=== PATIENT | male | born 1995 | race Caucasian/White ===

== ENCOUNTER 2017-12-16 17:56 | Emergency (ER) | payer OTHER ==
[2017-12-16 18:08] VITALS: BP 117/73; PULSE 56; RESP 18; TEMP 98.9; O2SAT 97
--- NOTE | 2017-12-16 18:18 | C.PDOC ---
History Of Present Illness 22yo male comes to ER for evaluation of laceration to the tip of his left 4th digit, sustained while at work. He denies any other injuries, weakness, numbness , tingling. No other complaints. Time Seen by Provider: 12/16/17 18:13 Chief Complaint (Nursing): Finger,Hand,&Wrist History Per: Patient History/Exam Limitations: no limitations Onset/Duration Of Symptoms: Hrs Current Symptoms Are (Timing): Still Present Quality: "Pain" Past Medical History Reviewed: Historical Data, Nursing Documentation, Vital Signs Vital Signs: Last Vital Signs Temp 98.9 F 12/16/17 18:05 Pulse 56 L 12/16/17 18:05 Resp 18 12/16/17 18:05 BP 117/73 12/16/17 18:05 Pulse Ox 97 12/16/17 18:17 - Medical History PMH: No Chronic Diseases Surgical History: No Surg Hx Family History: States: No Known Family Hx - Social History Hx Alcohol Use: Yes Hx Substance Use: No - Immunization History Hx Tetanus Toxoid Vaccination: Yes (05/2016) Hx Influenza Vaccination: No Hx Pneumococcal Vaccination: No Review Of Systems Except As Marked, All Systems Reviewed And Found Negative. Skin: Positive for: Other (lacertion to right 4th digit) Physical Exam - Physical Exam Appears: Non-toxic, No Acute Distress Skin: Warm, Dry, Other (1x1cm avulsion to tip of left 4th digit on the medial aspect.) Head: Atraumatic, Normacephalic Eye(s): bilateral: Normal Inspection Neck: Normal ROM, Supple Chest: Symmetrical Cardiovascular: Rhythm Regular Respiratory: Normal Breath Sounds Extremity: Normal ROM, No Deformity Neurological/Psych: Oriented x3 ED Course And Treatment O2 Sat by Pulse Oximetry: 97 (RA) Pulse Ox Interpretation: Normal Medical Decision Making Medical Decision Making: small avulsion lac of lateral tip of L 4th finger approx 1x1 cm no suture repair indicated cleaned and bandaged. Disposition Doctor Will See Patient In The: Office Counseled Patient/Family Regarding: Studies Performed, Diagnosis - Disposition Referrals: [facility] [Outside] [facility] [Outside] [facility] [Outside] Disposition: HOME/ ROUTINE Disposition Time: 18:17 Condition: GOOD Additional Instructions: llava con jabon y agua diario Bacitracin inguento diario mantiene cubierto y limpio kay el thelma. Instructions: Common Finger Injuries (DC) Forms: [facility] (Gabonese) Print Language: TRINIDADIAN - Clinical Impression Clinical Impression: Laceration of finger of left hand - Scribe Statement The provider has reviewed the documentation as recorded by the Scribe (Naila Lema) Provider Attestation: All medical record entries made by the Scribe were at my direction and personally dictated by me. I have reviewed the chart and agree that the record accurately reflects my personal performance of the history, physical exam, medical decision making, and the department course for this patient. I have also personally directed, reviewed, and agree with the discharge instructions and disposition.
[2017-12-16] MEDS ORDERED: Bacitracin 500 Units/gm Oint Foilpak UD TOP ONE (18:19)
[2017-12-16] MEDS ORDERED: Bacitracin 500 Units/gm Oint Foilpak UD ONE (18:30)
== END 2017-12-16 18:43 | disposition home or self-care (01) ==
LOC: C.ER 17:56
DX: S61.215A Laceration without foreign body of left ring finger without damage to nail, initial encounter (principal); X58.XXXA Exposure to other specified factors, initial encounter; Y92.89 Other specified places as the place of occurrence of the external cause; Y99.0 Civilian activity done for income or pay